=== PATIENT | male | born 1970 | race Caucasian/White ===

== ENCOUNTER → 2020-02-11 14:55 | Outpatient (REF) | payer BC, SELFPAY | LOC: ANHLAB 14:55 | PROVIDERS: Visit Provider Nurse Practitioner | DX: L72.8 Other follicular cysts of the skin and subcutaneous tissue (principal) | CPT/HCPCS: 88304 ==

== ENCOUNTER 2022-06-01 14:28 | Outpatient (NON) | payer BC, SELFPAY | END 2022-06-01 14:29 | disposition home or self-care (01) | PROVIDERS: Visit Provider Surgery Plastic and Reconstructive Surgery | DX: D23.39 Other benign neoplasm of skin of other parts of face (principal) | CPT/HCPCS: 88305 ==